=== PATIENT | male | born 1985 | race Caucasian/White ===

== ENCOUNTER 2021-10-10 19:15 | Emergency (ER) | payer MEDICAID, SELFPAY ==
[2021-10-10 19:33] VITALS: BP 126/88; PULSE 97; RESP 18; TEMP 36.4; O2SAT 98; BMI 36.5
--- NOTE | 2021-10-10 19:44 | CRLHL7_ITS ---
For Patients: As a result of the Cures Act, medical imaging exams and procedure reports are released immediately into your electronic medical record. You may view this report before your referring provider. If you have questions, please contact your health care provider. Indication: Injury to 4th digit. Technique: Right foot 3 views. Comparison: None. Findings: Bones: Alignment is normal. No fractures or bone lesions. Joint spaces: Unremarkable. Soft tissues: Unremarkable. Impression: No sign of acute injury. Dictated by Mayelin Pérez MD @ 10/10/2021 8:29:16 PM (Electronically Signed)
--- NOTE | 2021-10-10 20:26 | ED.GENADULT ---
HPI - General Adult General Time Seen by Provider: 20:25 Date Seen: 10/10/21 Chief complaint: Extremity Pain/Injury, Lower Stated complaint: R foot/toe injury Time Seen by Provider: 10/10/21 20:21 Source: patient History of Present Illness HPI narrative: 36-year-old male who comes in today after dropping the wheel of utility trailer on his right foot yesterday. Took ibuprofen but has continued to have pain in noted bruising today. No other injury. Pain is in the 3rd, 4th, and 5th toes. Has not use ice and is able to ambulate. Related Data Home Medications Medication Instructions Recorded Confirmed No Known Home Medications 10/10/21 10/10/21 Allergies Allergy/AdvReac Type Severity Reaction Status Date / Time benzoin Allergy Intermediate Rash Verified 10/10/21 19:35 Review of Systems Status of ROS: Reports: 10 or more systems reviewed and unremarkable except as noted in History and below [facility] PFS Medical History (Updated 10/10/21 @ 20:30 by Jose Angel Milton MD) Anxiety Surgical History (Updated 10/10/21 @ 20:17 by Carlos Resendez RN) No significant past surgical history Social History Smoking Status: Never smoker Do you use any of these nicotine containing products: None How often do you have a drink containing alcohol: never How often do you have six or more drinks on one occasion: Never AUDIT-C Alcohol total score: 0 Non-prescribed substance use: denies use Exam Narrative: Exam Narrative: General: well nourished , NAD Head: Atraumatic and normocephalic ENT: External ears and external nose are normal Eyes: Conjunctiva clear, pupils are equal reactive, external ocular motions are intact Neck: Full spontaneous range of motion of the neck Lungs: No respiratory distress Musculoskeletal: Tenderness and bruising of the 4th toe on the right foot, mild tenderness of the 5th toe and 3rd toe but less bruising Neurologic: No gross focal neurologic deficits Skin: No rashes Psych: Mood and affect are appropriate Const: Vital Signs, click to edit/add: Vital Signs - 24 hr 10/10/21 19:33 Temperature 97.6 F Pulse Rate [Right Pulse Oximeter] 97 Respiratory Rate 18 Blood Pressure [Ri ght Upper Arm] 126/88 Pulse Oximetry 98 Documenting provider has reviewed patient's vital signs: yes Course Vital Signs Vital signs: Initial Vital Signs Temperature 97.6 F 10/10/21 19:33 Temperature Source Temporal Artery Scan 10/10/21 19:33 Pulse Rate 97 10/10/21 19:33 Respiratory Rate 18 10/10/21 19:33 Blood Pressure 126/88 10/10/21 19:33 Blood Pressure Mean 100 10/10/21 19:33 Blood Pressure Position Sitting 10/10/21 19:33 Pulse Oximetry 98 10/10/21 19:33 Oxygen Delivery Method 10/10/21 19:33 Vital Signs Temperature 97.6 F 10/10/21 19:33 Pulse Rate 97 10/10/21 19:33 Respiratory Rate 18 10/10/21 19:33 Blood Pressure 126/88 10/10/21 19:33 Pulse Oximetry 98 10/10/21 19:33 Temperature 97.6 F 10/10/21 19:33 Pulse Rate 97 10/10/21 19:33 Respiratory Rate 18 10/10/21 19:33 Blood Pressure 126/88 10/10/21 19:33 Pulse Oximetry 98 10/10/21 19:33 Medical Decision Making MDM Narrative Medical decision making narrative: Patient seen and examined, prior records reviewed. Patient presents with pain of the 3rd, 4th, and 5th toes on the right after crush injury yesterday. On exam, bruising of the 4th toe, less prominent bruising but still some tenderness of the 3rd and 5th toes. X-ray personally reviewed and interpreted by me does not demonstrate any fractures, radiology interpretation is pending. Plan to discharge with symptom management. No pain with passive movement or numbness to suggest compartment syndrome. Discharge Plan Discharge Clinical Impression: Contusion of toe of right foot Patient Disposition: Home, Self-Care Condition: Stable Instructions: Crush Injury (ED) Additional Instructions: Elevate as able, ice 15-20 minutes at a time every 2-3 hours while awake today and tomorrow. Tylenol and ibuprofen as needed for pain. Activity Level: Activity as Tolerated Discharge Diet: Regular Prescriptions: No Action No Known Home Medications 0RF Follow Up/Referrals: Kenroy Bear MD [Primary Care Provider] - Stand Alone Forms: [employer] Info Instructions
[2021-10-10 20:50] VITALS: BP 119/78; PULSE 78
== END 2021-10-10 20:51 | disposition home or self-care (01) ==
LOC: ED 20:49
PROVIDERS: Emergency Provider Family Medicine; PCP Family Medicine
DX: S90.121A Contusion of right lesser toe(s) without damage to nail, initial encounter (principal); W23.0XXA Caught, crushed, jammed, or pinched between moving objects, initial encounter
CPT/HCPCS: 73630; 99283; 99284

== ENCOUNTER 2022-03-10 09:39 | Day surgery (SDC) | payer MEDICAID, SELFPAY ==
[2022-03-10] VITALS (13 sets, daily range): BP systolic 93–140; BP diastolic 66–101; PULSE 61–87; RESP 12–16; TEMP 36.1–36.9; O2SAT 92–100; BMI 37.9
--- NOTE | 2022-03-10 08:40 | CRLHL7_ITS ---
For Patients: As a result of the Century Cures Act, medical imaging exams and procedure reports are released immediately into your electronic medical record. You may view this report before your referring provider. If you have questions, please contact your health care provider. Indication: Left Talonavicular joint, Navicular Cuneiform joint Technique: Four fluoroscopic images of the left hindfoot submitted. Fluoroscopic time 139.1 seconds. IMPRESSION: Fluoroscopic guidance for posterior calcaneal osteotomy and multifocal joint fusion at the talonavicular joint and navicular cuneiform joint. Dictated by Kenroy Vaughan MD @ 03/11/2022 10:14:09 AM (Electronically Signed)
[2022-03-10] MEDS: LACTATED RINGERS 1000 ML 1,000 ML 100 ML IV (10:00)
[2022-03-10] MEDS: SODIUM CHLORIDE 0.9 % (FLUSH) 10 ML SYRINGE IVF (10:29)
--- NOTE | 2022-03-10 10:29 | SUR.PREOP ---
patient brought in home covid test. I was able to visualize the negative result. Test was taken on 03/09/22 in the evening.
[2022-03-10] MEDS: CEFAZOLIN 2 GM INJ IVP (11:45)
--- NOTE | 2022-03-10 12:04 | W.PM.NB ---
Nerve Block Nerve Block Date Seen: 03/10/22 Type of block requested by surgeon for post-operative analgesia: popliteal Side: left Time out performed: Yes Verification of patient name: Yes Verification of date of : Yes Site marking: site marked Name of person performing procedure: Juan Continuous monitoring Was continuous monitoring of O2 sat, B/P, classroom monitor, recorded every 15 minutes?: Yes Procedure Checklist: sterile prep, needles and gloves Ultrasound guided. Images saved: Yes Medications given in 5ml increments after negative aspiration: Ropivicaine %: 0.5 mL: 20 Needle gauge: 22 Patient tolerated procedure well: Yes Additional comments: Needle noted adjacent to nerve Block Charges Block Charge (with Pro Fee): Sciatic Nerve Use of Ultrasound Machine for Block: Yes- US Guidance/pain block
--- NOTE | 2022-03-10 12:04 | W.ANESCHARGE ---
Anesthesia Charges Start Date/Time Anesthesia Start Date: 03/10/22 Anesthesia Start Time: 11:23 Stop Date/Time Anesthesia Stop Date: 03/10/22 Summary Emergency: No
--- NOTE | 2022-03-10 12:08 | SUR.OPER ---
Patient voided before being brought back to OR.
--- NOTE | 2022-03-10 12:59 | W.ANESCHARGE ---
Anesthesia Charges Start Date/Time Anesthesia Start Date: 03/10/22 Anesthesia Start Time: 11:23 Stop Date/Time Anesthesia Stop Date: 03/10/22 Anesthesia Stop Time: 16:12 Summary Emergency: No
[2022-03-10] MEDS: BUPIVACAINE 0.5% 30 ML INJECTION (15:47)
--- NOTE | 2022-03-10 16:22 | P.GSOP_ITS ---
Operative Note Date of procedure: 03/10/22 Type of Procedure: 1. Gastroc lengthening left 2. Talonavicular joint fusion left 3. Navicular cuneiform joint fusion left 4. Medial slide Calcaneal osteotomy left foot Procedure Description: 1. Gastroc lengthening left 2. Talonavicular joint fusion left 3. Navicular cuneiform joint fusion left 4. Medial slide Calcaneal osteotomy left foot After discussing the risks and benefits of the procedure, the patient signed informed consent.? The operative site was marked and the patient was brought to the operating room and placed on the operating table in supine position.? Care was taken to pad the patient's pressure points.?? The patient was then intubated and given a popliteal block by anesthesia.?? The operative site was then prepped and draped in the usual sterile fashion.? A time-out was then performed. Left limb was exsanguinated and the thigh tourniquet and inflated to 300 mmHg. The left leg was placed in a frog-leg position with the foot dorsiflexed. Linear incisions made at the terminal end of the gastroc musculature medially. Incision was carried down through skin subcutaneous tissues. The paratenon was identified and incised. The gastroc aponeurosis was identified and from the underlying soleal fibers as well as the more superficial paratenon. The nerve was not within the paratenon and thus retracted throughout the case. A nasal speculum was placed to protect all structures. Utilizing a scalpel and Naranjo scissors a Krystian type gastroc recession was performed. Is excellent improvement in ankle dorsiflexion was obtained. Wound was thoroughly irrigated normal sterile saline. The paratenon was then repaired with 4-0 Vicryl. Subcutaneous tissues reapproximated 4-0 Vicryl and skin closed with 4-0 Prolene. Slightly angled linear incisions made over the lateral calcaneus. Incision was carried down through skin subcutaneous tissues. Periosteal incision was made and periosteum reflected anterior and posterior. A Crego elevator was used to release soft tissues plantar, dorsal and medial. Next an osteotomy guide was applied laterally and position and angle checked with C-arm. It was found to be optimal. A through and through osteotomy of the calcaneus was not performed lateral to medial taking great care to protect the medial neurovascular structures. Arthrex 10 mm calcaneal slide plate was applied to the posterior fragment and anchored with a 3.5 nonlocking and 3.5 mm locking screw. The posterior fragment was then transposed medially of the and the crossing cortical screw was placed creating with the compression across the osteotomy and awaiting the distal plate on the calcaneus. Lateral and axial views confirmed excellent correction. A 3.5 mm nonlocking and 3.5 mm locking screws were placed in the distal plate. Wound was thoroughly irrigated normal sterile saline. Subcutaneous tissues reapproximated 4-0 Vicryl and 4-0 Monocryl. The skin closed with 4-0 Prolene. Linear incision was made over the dorsal medial aspect of the talonavicular and navicular cuneiform joints. Incision was made between the posterior tibial tendon and the anterior tibial tendon. Incision was deepened down to the joint capsules and the joint capsule tissue was incised exposing both the talonavicular joint and the naviculocuneiform joint. Joint distractor was applied for to the talonavicular joint. Using combination of osteotome and cu rette the cartilage and subchondral bone were removed. The joint was further prepped by fenestrating with a 2.5 mm drill and fish scaling with an osteotome. The joint distractor was then applied to the navicular cuneiform joint. Cartilage subchondral bone removed with an osteotome and curette. Joint was further prepped with 2.5 mm drill and fish-scaled with an osteotome. 2 mL of demineralized bone matrix was placed into the talonavicular fusion site. The foot was then placed in a corrected position and a guide pin was placed in the navicular tuberosity and driven into the talar head and body. Position checked with C-arm found to be optimal. A 6.5 mm cannulated headless screw was inserted using standard technique excellent compression noted across the fusion site. 1 mL of demineralized bone matrix was placed into the navicular medial cuneiform joint. The navicular cuneiform joint was then held in reduced position and a guidepin was placed from the dorsal navicular into the plantar medial cuneiform. 4.5 mm cannulated headless screw inserted. Excellent compression across the fusion site was noted. Overall corrected position the foot assigned to be excellent. The dorsal to plantar 15 mm x 15 mm staple was then placed across the navicular medial cuneiform joint. Tourniquet was released at this point. The dorsalis pedis artery was identified and marked. A linear incision was then made over the middle cuneiform navicular joint medial to the neurovascular bundle. Blunt dissection was carried down to the middle cuneiform navicular joint. This area had been previously prepped. 1 mL of demineralized bone matrix was injected into the middle cuneiform navicular joint. A 15 mm x 15 mm staple was then placed. Excellent compression noted across the fusion site. A guide pin was then placed between the medial and middle cuneiform on the navicular and passed into the talar head. 4.5 mm cannulated headless screw was inserted in using standard technique. Wound was thoroughly irrigated with normal sterile saline. Final C-arm images confirmed excellent position and appropriate placement of hardware. Subcutaneous tissue was reapproximated 4-0 Vicryl and 4-0 Monocryl. Skin was reapproximated 4-0 Prolene. Sterile dressings were then applied. A well-padded plaster [id number] splint was applied. ? The patient was then woken and transported to the recovery area in stable condition. The patient tolerated the procedure well. Both written and verbal postop instructions given. He is given oxycodone for pain. He has crutches at home. He will remain nonweightbearing. He will follow up in 2 days. He will start aspirin therapy tomorrow. Findings: Complications: None apparent Implants: Arthrex 6.5 mm headless screw x1, Arthrex 4.5 mm headless screw x 2, Arthrex 15 mm by 15 mm staple x2, Arthrex calcaneal plate x1 with 3.5 mm nonlocking screw x3 and 3.5 mm locking screws x2 Anesthesia: GETA, regional and local Surgeon: Arjun Isaacs DPM Estimated blood loss (mL): 40 Condition: stable Disposition: same day
--- NOTE | 2022-03-10 16:24 | W.ANESCHARGE ---
Anesthesia Charges Start Date/Time Anesthesia Start Date: 03/10/22 Anesthesia Start Time: 11:23 Stop Date/Time Anesthesia Stop Date: 03/10/22 Anesthesia Stop Time: 16:12 Summary Emergency: No
--- NOTE | 2022-03-10 16:53 | SUR.PHASEI ---
500cc lr upon pacu arrival. infused 100cc lr infused in pacu phase 1
== END 2022-03-10 18:09 | disposition home or self-care (01) ==
PROVIDERS: Visit Provider Podiatrist
PROC: (CPT 28740; principal; 2022-03-10 11:30)
PROC: (CPT 28300; 2022-03-10 11:30)
DX: M21.42 Flat foot [pes planus] (acquired), left foot (principal); M21.41 Flat foot [pes planus] (acquired), right foot; M25.572 Pain in left ankle and joints of left foot
CPT/HCPCS: 27687; 28300; 28735; 01480; 64445; 73620; 76000; 76942; A4580; C1713; J0690; J1100; J1170; J2250; J2405; J2795; J3010; J3490; J7120

== ENCOUNTER 2022-07-28 13:30 | Outpatient (RCR) | payer MEDICAID, SELFPAY | END 2022-10-20 14:49 | disposition home or self-care (01) | PROVIDERS: Visit Provider Podiatrist | DX: M76.822 Posterior tibial tendinitis, left leg (principal); Z51.89 Encounter for other specified aftercare | CPT/HCPCS: 97110; 97140; 97161 ==

== ENCOUNTER 2022-11-05 20:58 | Emergency (ER) | payer MEDICAID, SELFPAY ==
[2022-11-05 21:10] VITALS: BP 125/74; PULSE 98; RESP 18; TEMP 36.7; O2SAT 99; BMI 39.5
--- NOTE | 2022-11-05 21:26 | ED.SKABFB ---
HPI - Skin/Abscess/Foreign Bdy General Time Seen by Provider: 21:26 Date Seen: 11/05/22 Chief complaint: Skin/Abscess/Foreign Body Stated complaint: bee sting yesterday, redness at site Time Seen by Provider: 11/05/22 21:13 Source: patient and RN notes reviewed Mode of arrival: ambulatory Limitations: no limitations History of Present Illness HPI narrative: Patient is a 37-year-old male that was stung in his left lower leg yesterday by a a bumble bee. He is not sure if he was stung multiple times. He has not taken anything, has not had any fevers. The leg has continued to swell, has increasing pain and is itchy. No history of reactions to insect bites Or Hymenoptera. He is not exactly sure where he was stung on the leg but there is red areas now, feels more warm. He is wondering about infection. Never any oral pharyngeal or respiratory symptoms. No other rash anywhere else just localized on the leg. 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 - Regular astigmatism, unspecified eye (ICD-10) Hypermetropia ?H52.00 - Hypermetropia, unspecified eye (ICD-10) Reflux esophagitis ?K21.00 - Gastro-esophageal reflux disease with esophagitis, without bleeding (ICD-10) Anxiety ?F41.9 - Anxiety disorder, unspecified (ICD-10) Surgical History Hx of esophagogastroduodenoscopy ?Z98.890 - Other specified postprocedural states (ICD-10) Hx of tonsillectomy ?Z90.89 - Acquired absence of other organs (ICD-10) No significant past surgical history Social History Smoking Status: Never smoker Do you use any of these nicotine containing products: None How often do you have a drink containing alcohol: never How often do you have six or more drinks on one occasion: Never AUDIT-C Alcohol total score: 0 Non-prescribed substance use: denies use Exam Const: Vital Signs, click to edit/add: Vital Signs - 24 hr 11/05/22 21:10 Temperature 98.1 F Pulse Rate [Right Pulse Oximeter] 98 Respiratory Rate 18 Blood Pressure [Ri ght Upper Arm] 125/74 Pulse Oximetry 99 Oxygen Delivery Me thod Room Air Documenting provider has reviewed patient's vital signs: yes Other: David is a 37-year-old male ambulatory into the ED of his own accord. Lungs are clear, able speak in complete sentences face atraumatic, no oral pharyngeal swelling. CV regular rate and rhythm no murmur. On his left lower extremity he definitely has edema anteriorly along the left lower leg. There is no calf tenderness, negative Homans. He has some petechial skin hemorrhages within the area of swelling, there is a centralized area of warmth, see no active solitary site where there is a bug bite. Has some generalized swelling in erythema. This certainly could be a localized inflammatory reaction and or cellulitis setting in. No fluctuance, no open wounds noted. Course Course Hospital Course: We will give a dose of Keflex here tonight as well as 10 mg oral Zyrtec. He has not taken any anti allergies /any anti-inflammatory type medicines. Will cover both for bug bite reaction as well as possible secondary cellulitis. Have stressed ice and elevation to help minimize symptoms over the next few days. Vital Signs Vital signs: Initial Vital Signs Temperature 98.1 F 11/05/22 21:10 Temperature Source Temporal Artery Scan 11/05/22 21:10 Pulse Rate 98 11/05/22 21:10 Respiratory Rate 18 11/05/22 21:10 Blood Pressure 125/74 11/05/22 21:10 Blood Pressure Mean 91 11/05/22 21:10 Blood Pressure Position Sitting 11/05/22 21:10 Pulse Oximetry 99 11/05/22 21:10 Oxygen Delivery Method Room Air 11/05/22 21:10 Vital Signs Temperature 98.1 F 11/05/22 21:10 Pulse Rate 98 11/05/22 21:10 Respiratory Rate 18 11/05/22 21:10 Blood Pressure 125/74 11/05/22 21:10 Pulse Oximetry 99 11/05/22 21:10 Oxygen Delivery Method Room Air 11/05/22 21:10 Temperature 98.1 F 11/05/22 21:10 Pulse Rate 98 11/05/22 21:10 Respiratory Rate 18 11/05/22 21:10 Blood Pressure 125/74 11/05/22 21:10 Pulse Oximetry 99 11/05/22 21:10 Oxygen Delivery Method Room Air 11/05/22 21:10 Discharge Plan Discharge Clinical Impression: Hymenoptera reaction Patient Disposition: Home, Self-Care Condition: Stable Instructions: Cellulitis (ED), Insect Bite or Sting (ED) Additional Instructions: Your leg certainly has swelling and inflammatory change which could have a component of infection of the skin called cellulitis from the bug bite. This is all possibly inflammatory reaction. We will cover both bases with Zyrtec in antibiotics. I would like you to pick some [id number] Zyrtec up and take 10 mg daily for the next 3-5 days until symptoms are improving. We will have you on Keflex to cover for infection, next dose is due tomorrow morning. Do recommend elevating and icing this leg as much as you are able to the next few days. If the swelling, redness itching and pain are not improving over the next couple days or start to worsen at any point, do recommend seeking re-evaluation. Activity Level: Activity as Tolerated Prescriptions: New cephalexin 500 mg tablet 500 mg PO TID Qty: 15 0RF No Action omeprazole 40 mg capsule,delayed release(DR/EC) 40 mg PO DAILY Follow Up/Referrals: Provider,Not a Local [Primary Care Provider] - Stand Alone [facility]: [facility] Info Instructions
[2022-11-05 21:40] VITALS: BP 128/84; PULSE 84; RESP 18; TEMP 36.7; O2SAT 99
[2022-11-05] MEDS: CETIRIZINE HCL 10 MG TABLET PO (21:43)
[2022-11-05] MEDS: cephALEXin 500 MG CAPSULE PO (21:43)
[2022-11-05 21:48] VITALS: BP 128/84; PULSE 84; RESP 18; TEMP 36.7
== END 2022-11-05 21:49 | disposition home or self-care (01) ==
LOC: ED 21:43
PROVIDERS: Emergency Provider Family Medicine
DX: B71.0 Hymenolepiasis (principal)
CPT/HCPCS: 99283; A9270

== ENCOUNTER 2023-06-06 16:54 | Emergency (ER) | payer MEDICAID, SELFPAY ==
[2023-06-06 17:03] VITALS: BP 134/85; PULSE 75; RESP 18; TEMP 36.1; O2SAT 97; BMI 36.2
[2023-06-06 18:01] LABS: PCR FLU A POSITIVE PCR FLU A (Negative); PCR FLU B Negative PCR FLU B (Negative); PCR RSV Negative PCR RSV (Negative); SARS PCR* Negative SARS-CoV-2 (Negative)
--- NOTE | 2023-06-06 18:15 | ED.GENADULT ---
HPI - General Adult General Chief complaint: Fever Stated complaint: Possible Flu A-son diagnosed Thursday Time Seen by Provider: 06/06/23 17:04 Source: patient Mode of arrival: ambulatory Limitations: no limitations History of Present Illness HPI narrative: 38-year-old male presenting today with concerns of fever. Patient states that he got sick approximately 5 days ago. Has not had a fever in the last 24 hours however. He feels achy and tired. Decreased appetite. No chest pain or shortness of breath. No cough. His children all have influenza a. 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 - Regular astigmatism, unspecified eye (ICD-10) Hypermetropia ?H52.00 - Hypermetropia, unspecified eye (ICD-10) Reflux esophagitis ?K21.00 - Gastro-esophageal reflux disease with esophagitis, without bleeding (ICD-10) Anxiety ?F41.9 - Anxiety disorder, unspecified (ICD-10) Surgical History Hx of esophagogastroduodenoscopy ?Z98.890 - Other specified postprocedural states (ICD-10) Hx of tonsillectomy ?Z90.89 - Acquired absence of other organs (ICD-10) No significant past surgical history Social History Smoking Status: Never smoker Do you use any of these nicotine containing products: None How often do you have a drink containing alcohol: never How often do you have six or more drinks on one occasion: Never AUDIT-C Alcohol total score: 0 Non-prescribed substance use: denies use Exam Narrative: Exam Narrative: Overweight, well-developed patient in no acute distress. Alert and oriented. Answers questions appropriately. Mood and affect are appropriate. Thoughts are goal oriented and rational. No tangential or magical thinking noted. Patient speaks in full sentences without needing to catch his breath. HEENT: Normocephalic atraumatic. Pupils are equally round reactive to light. Extraocular muscles are intact. Conjunctivae are moist without any icterus noted. Moist mucous membranes. Cardiovascular: Heart is regular rate and rhythm S1 and S2 are present without any murmurs. Lungs: Clear to auscultation bilaterally no wheezes rhonchi or rales are appreciated. Patient takes deep breaths without any discomfort. Abdomen: Soft and nontender nondistended with normal bowel sounds. Skin: Well perfused without any obvious rashes. Const: Vital Signs, click to edit/add: Vital Signs - 24 hr 06/06/23 17:03 Temperature 96.9 F L Pulse Rate [Right Pulse Oximeter] 75 Respiratory Rate 18 Blood Pressure [Ri ght Upper Arm] 134/85 Pulse Oximetry 97 Oxygen Delivery Me thod Room Air Course Course ED Course: Triple swab positive for influenza A. Vital Signs Vital signs: Initial Vital Signs Temperature 96.9 F L 06/06/23 17:03 Temperature Source Temporal Artery Scan 06/06/23 17:03 Pulse Rate 75 06/06/23 17:03 Respiratory Rate 18 06/06/23 17:03 Blood Pressure 134/85 06/06/23 17:03 Blood Pressure Mean 101 06/06/23 17:03 Blood Pressure Position Sitting 06/06/23 17:03 Pulse Oximetry 97 06/06/23 17:03 Oxygen Delivery Method Room Air 06/06/23 17:03 Vital Signs Temperature 96.9 F L 06/06/23 17:03 Pulse Rate 75 06/06/23 17:03 Respiratory Rate 18 06/06/23 17:03 Blood Pressure 134/85 06/06/23 17:03 Pulse Oximetry 97 06/06/23 17:03 Oxygen Delivery Method Room Air 06/06/23 17:03 Temperature 96.9 F L 06/06/23 17:03 Pulse Rate 75 06/06/23 17:03 Respiratory Rate 18 06/06/23 17:03 Blood Pressure 134/85 06/06/23 17:03 Pulse Oximetry 97 06/06/23 17:03 Oxygen Delivery Method Room Air 06/06/23 17:03 Medical Decision Making MDM Narrative Medical decision making narrative: 38-year-old male with influenza a. He is outside the therapeutic window for Tamiflu. He is doing better today than he was yesterday. At this point recommend symptomatic treatment. Lab Data Lab results reviewed: Yes I reviewed the patient's lab results Labs: Lab Results 06/06/23 Range/Units 17:09 SARS-CoV-2 (PCR) Negative SARS-CoV-2 (Negative) Influenza Type A (PCR) POSITIVE PCR FLU A A (Negative) Influenza Type B (PCR) Negative PCR FLU B (Negative) RSV (PCR) Negative PCR RSV (Negative) Discharge Plan Discharge Clinical Impression: Influenza A Patient Disposition: Home, Self-Care Condition: Stable Additional Instructions: Increase fluid intake, okay to take ibuprofen or Tylenol as needed for discomfort or fevers. Prescriptions: No Action omeprazole 20 mg capsule,delayed release(DR/EC) 20 mg PO DAILY Follow Up/Referrals: Provider,Not a Local [Primary Care Provider] - Stand Alone Forms: Duroline Info Instructions
== END 2023-06-06 18:45 | disposition home or self-care (01) ==
PROVIDERS: Emergency Provider Family Medicine
DX: J10.1 Influenza due to other identified influenza virus with other respiratory manifestations (principal)
CPT/HCPCS: 87631; 99282; 99283

== ENCOUNTER 2023-08-26 10:09 | Emergency (ER) | payer MEDICAID, SELFPAY ==
[2023-08-26 10:13] VITALS: BP 150/94; PULSE 51; RESP 18; TEMP 36.3; O2SAT 97; BMI 36.2
--- NOTE | 2023-08-26 10:19 | ED_ITS ---
HPI - General Adult General Date Seen: 08/26/23 Chief complaint: Unspecified Complaint, Adult Stated complaint: Rectal pain Time Seen by Provider: 08/26/23 10:18 History of Present Illness HPI narrative: 38-year-old gentleman with a past medical history of previous hemorrhoid (8-9 years ago. Treated in the clinic. Probably with anti-inflammatory cream.), influenza in June, presenting to the ER today with rectal pain. He woke yesterday morning with rectal pain. He is noting a small lump in the rectum and feels similar to when he had his hemorrhoid supple years ago. 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 He was experiencing a lot of pain in his rectum yesterday while sitting all day is able to pass bowel movements. There not bloody. He is not constipated. No rectal pain when passing a Plasencia but he does have some discomfort right at the opening when the stool passes and when he wipes. No fever chills. No abdominal pain. No nausea or vomiting. He has no previous history of inflammatory bowel disease or Crohn's. No history of immunosuppression. No diabetes. He does have GERD and takes omeprazole. 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 - Regular astigmatism, unspecified eye (ICD-10) Hypermetropia ?H52.00 - Hypermetropia, unspecified eye (ICD-10) Reflux esophagitis ?K21.00 - Gastro-esophageal reflux disease with esophagitis, without bleeding (ICD-10) Anxiety ?F41.9 - Anxiety disorder, unspecified (ICD-10) Surgical History Hx of esophagogastroduodenoscopy ?Z98.890 - Other specified postprocedural states (ICD-10) Hx of tonsillectomy ?Z90.89 - Acquired absence of other organs (ICD-10) No significant past surgical history Social History Smoking Status: Never smoker Do you use any of these nicotine containing products: None How often do you have a drink containing alcohol: never How often do you have six or more drinks on one occasion: Never AUDIT-C Alcohol total score: 0 Non-prescribed substance use: denies use Exam Narrative: Exam Narrative: Constitutional: Appears well-developed and well-nourished. Active. Polite. Conversant. Non-toxic appearing. HENT: Head: Atraumatic. No signs of injury. Nose: No nasal discharge. Mouth/Throat: Mucous membranes are moist. Pharynx is normal.. Airway patent. Eyes: Conjunctivae normal and EOM are normal. Pupils are equal, round, and reac tive to light. Right eye exhibits no discharge. Left eye exhibits no discharge. No icterus. Neck: Normal range of motion. Neck supple. No adenopathy. No stridor. Cardiovascular: Normal rate and regular rhythm. Brisk capillary refill Pulmonary/Chest: Effort normal. No stridor. No respiratory distress. No retractions. Abdominal: Soft. Bowel sounds are normal. No distension. No mass. There is no tenderness. There is no rebound and no guarding. Rectal: Gluteal cleft and perineum are normal. Rectal tone normal. There is a small 5-10 mm mildly inflamed soft tissue lump right at the rectal opening, in the anterior portion just left of midline. Think this consistent with a small external hemorrhoid. No bleeding. Could also potentially be a thrombosed, prolapsed internal hemorrhoid. No surrounding erythema to suggest perirectal abscess. Musculoskeletal: Normal range of motion. No edema. No tenderness. No deformity. Neurological: Alert. Normal strength. No cranial nerve deficit or sensory deficit. Coordination normal. GCS eye subscore is 4. GCS verbal subscore is 5. GCS motor subscore is 6. Skin: Skin is warm. No rash noted. Const: Vital Signs, click to edit/add: Vital Signs - 24 hr 08/26/23 10:13 Temperature 97.4 F L Pulse Rate [Pulse Oximeter] 51 L Respiratory Rate 18 Blood Pressure [Ri ght Upper Arm] 150/94 H Pulse Oximetry 97 Oxygen Delivery Me thod Room Air Course Vital Signs Vital signs: Initial Vital Signs Temperature 97.4 F L 08/26/23 10:13 Temperature Source Temporal Artery Scan 08/26/23 10:13 Pulse Rate 51 L 08/26/23 10:13 Respiratory Rate 18 08/26/23 10:13 Blood Pressure 150/94 H 08/26/23 10:13 Blood Pressure Mean 112 H 08/26/23 10:13 Blood Pressure Position Sitting 08/26/23 10:13 Pulse Oximetry 97 08/26/23 10:13 Oxygen Delivery Method Room Air 08/26/23 10:13 Vital Signs Temperature 97.4 F L 08/26/23 10:13 Pulse Rate 51 L 08/26/23 10:13 Respiratory Rate 18 08/26/23 10:13 Blood Pressure 150/94 H 08/26/23 10:13 Pulse Oximetry 97 08/26/23 10:13 Oxygen Delivery Method Room Air 08/26/23 10:13 Temperature 97.4 F L 08/26/23 10:13 Pulse Rate 51 L 08/26/23 10:13 Respiratory Rate 18 08/26/23 10:13 Blood Pressure 150/94 H 08/26/23 10:13 Pulse Oximetry 97 08/26/23 10:13 Oxygen Delivery Method Room Air 08/26/23 10:13 Medications Administered Medications: Discontinued Medications Generic Name Dose Route Start Last Admin Trade Name Freq PRN Reason Stop Dose Admin Lidocaine HCl 6 ml 08/26/23 10:49 08/26/23 11:05 Lidocaine Hcl 2 % Jelly (Top) Sterile TOPICAL 08/26/23 10:50 6 ml ONCE ONE Administration Medical Decision Making MDM Narrative Medical decision making narrative: Very pleasant generally healthy male (only on Prilosec for GERD) presenting to the ER today with a painful lump at his rectum. Exam most consistent with a very small thrombosed external hemorrhoid. Differential would also include possibly an internal hemorrhoid that is prolapsed during my exam, but that is less likely. Also consider possible para rectal abscess but that is much less likely. No other constitutional symptoms or fever and no surrounding erythema to suggest active infection. Discussed options with the patient. Hemorrhoid is fairly for close to the anal opening and would be difficult to do an incision and drainage here in the ER. Will start him on topical lidocaine for comfort and topical steroids for anti- inflammatory effect. If the area becomes larger, more painful, starts bleeding, or other symptoms develop he will return to the ER right away. If it is worsening would consider re-evaluation by exam or possibly even CT to check for perirectal abscess. Otherwise outpatient referral for surgery to consider excision. Patient agreeable to plan of care. He does not need a note for work. Return precautions reviewed. Questions answered. Topical lidocaine applied here in the ER. Prescription for hydrocortisone to his pharmacy at [facility]. Discharge Plan Discharge Clinical Impression: Hemorrhoids, external, thrombosed Patient Disposition: Home, Self-Care Condition: Stable Instructions: Hemorrhoids (DC) Additional Instructions: As we discussed, use the topical anesthetic cream (lidocaine) every 4 hours as needed for discomfort. Use the steroid cream twice daily to help reduce inflammation until the hemorrhoid is healed. If you have any worsening pain, if the lump is getting bigger, or if he develops fever or chills or abdominal pain, please come back to the ER right away to be rechecked. You should consider surgical consultation to have your hemorrhoid excised. To make an appointment with the surgeon, you can call [phone] Prescriptions: New hydrocortisone 1 % cream 1 applic topical BID Qty: 28.4 0RF No Action omeprazole 20 mg capsule,delayed release(DR/EC) 20 mg PO DAILY Follow Up/Referrals: Provider,Not a Local [Primary Care Provider] - Stand Alone Forms: [employer] Info Instructions
[2023-08-26] MEDS: lidocaine HCL 2 % JELLY (TOP) STERILE 6 ML TOPICAL (11:05)
== END 2023-08-26 11:16 | disposition home or self-care (01) ==
LOC: ED 10:55
PROVIDERS: Emergency Provider Emergency Medicine
DX: K64.5 Perianal venous thrombosis (principal)
CPT/HCPCS: 99282; 99283

== ENCOUNTER 2024-10-25 19:02 | Emergency (ER) | payer OTHER, SELFPAY ==
--- OUTSIDE RECORDS SUMMARY | 2024-10-25 19:04 | XMS_ITS | Clinical Summary ---
Author Organization [email or web address] Address [address] [place] [id number] Care Team Providers Care Screw Driver Operator Name Role Phone Nataliia Pinzon MD Primary Care Provider [phone] Allergies Active Allergy Reactions Criticality Noted Date Comments Aloe Rash 05/23/2018 Balsam Jaren Rash 05/23/2018 Benzoin Rash 09/25/2009 Medications durable medical equipment (DME)Indication s:Pes planus of both feet,Tendonitis , Achilles, left [id number] Plantar Fasciitis Night Splint, Large 1 Each 1 Active omeprazole (PRILOSEC) 40 mg Delayed-Release capsuleIndicati ons:Gastroesoph ageal reflux disease with esophagitis without hemorrhage TAKE 1 CAPSULE BY MOUTH ONCE DAILY 30-60 MINUTES BEFORE A MEAL. 90 Capsule 3 2 Active acetaminophen (TYLENOL EXTRA STRGTH) 500 mg tabletIndicatio ns:Follow-up examination after orthopedic surgery Take 2 Tablets (1,000 mg) by mouth every 6 hours if needed for Pain. Max acetaminophen dose: 4000mg in 24 hrs. 90 Tablet 3 Active ibuprofen (ADVIL; MOTRIN) 600 mg tabletIndicatio ns:Follow-up examination after orthopedic surgery Take 1 Tablet (600 mg) by mouth every 6 hours if needed for Pain. Maximum of 3200 mg in 24 hours. 60 Tablet 2 3 Active triamcinolone (ARISTOCORT; KENALOG) 0.1 % creamIndication s:Skin infection Apply topically to affected area(s) three times daily. 28.4 g 3 Active clobetasol 0.05% (TEMOVATE 0.05% OINTMENT) 0.05 % ointmentIndicat ions:Skin lesion Apply topically to affected area(s) two times daily. 30 g 3 Active durable medical equipment (DME)Indication s:Plantar fasciitis [phone] Plantar Fasciitis Night Splint 5 Active Active Problems Problem Noted Date Diagnosed Date Reflux esophagitis 09/05/2013 Overview (09/05/2013): EGD 08/2013 reflux, small stricture, could not dilate due to patient's movement SIRI 09/12 AHI-5.2, having tonsils removed 009 Hypermetropia 08/31/2007 Regular astigmatism 08/31/2007 Encounters Date Type Department Care Team Description 08/16/2024 Telephone [facility] [address] [place] [address] Arjun Isaacs DPM DME Supply ([employer]) 08/03/2024 2:45 PM CDT Office Visit [facility] [address] [place] [address] Arjun Isaacs DPM Follow Up (Left foot pain) 08/03/2024 Travel from Last 3 Months Immunizations Immunization Administration Dates Next Due AMB Influenza, IIV3 (Age >=3 years)(Flu Clinic Only) 02/24/2008 DTP 04/12/1986, 6,1984,1984 Influenza A (H1N1), Inactivated 02/22/2009 Influenza A (H1N1), Live Intranasal 02/22/2009 Influenza, IIV3 (Age 6-35 mos) 04/18/2009 Influenza, IIV3 (Age >=3 years) 04/21/19 14,01/20/2012,03/12/2011,2009,04/18/2009 Influenza, IIV4 02/26/2022, 0,03/28/2019,2017,05/04/2017,02/06/2016,02/09/2015,1 05/17/2013 MMR 08/01/1985 Oral Polio Vaccine 04/12/1986, 6,1984,1984 Tdap 01/26/2014,11/09/2008 Family History Medical History Relation Name Comments No Known Problems Brother 1 No Known Problems Brother 2 No Known Problems Brother 3 Hypertension Father Stroke Father TIA Cancer-colon Maternal Aunt No Known Problems Maternal Grandfather No Known Problems Maternal Grandmother Good Health Mother No Known Problems Paternal Grandfather No Known Problems Paternal Grandmother Relation Name Status Comments Brother 1 Alive Brother 2 Alive Brother 3 Alive Father Alive Maternal Aunt Maternal Grandfather Maternal Grandmother Alive Mother Alive Paternal Grandfather Paternal Grandmother Social History Tobacco Use Types Packs/Day Years Used Date Smoking Tobacco: Never Smokeless Tobacco: Never Tobacco Cessation:Counseling Given: Yes Alcohol Use Standard Drinks/Week Comments Not Currently 0 (1 standard drink = 0.6 oz pur e alcohol) 1x per month PHQ-2 Answer Date Recorded PHQ-2 TOTAL SCORE 0 11/27/2021 Social Connections Answer Date Recorded Frequency of Communication with Friends and Fami ly 0 11/27/2021 Financial Resource Strain Answer Date R ecorded Difficulty of Paying Living Expenses 3 11/27/2021 Difficulty of Paying Living Expenses Not on file 11/27/2021 Food Insecurity Answer Date Recorded Worried About Running Out of Food in the Last Ye ar 1 11/27/2021 Transportation Needs Answer Date Record ed Lack of Transportation (Medical) 1 11/27/2021 Housing Stability Answer Date Recorded Unable to Pay for Housing in the Last Year 1 11/27/2021 Sex and Gender Information Value Date Recorded Sex Assigned at Not on file Legal Sex 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 Gender Identity Not on file Sexual Orientation Not on file 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 Not on file Not on file Not on file Obstetrics History Last Filed Vital Signs Vital Sign Reading Time Taken Comments Blood Pressure 120/75 08/03/2024 2:22 PM CDT Pulse 79 08/03/2024 2:22 PM CDT Temperature 36.8 C (98.3 F) 10/13/2022 2:21 PM CDT Respiratory Rate 12 03/28/2019 9:45 AM TROLLEY OPERATOR Oxygen Saturation 97% 08/03/2024 2:22 PM CDT Inhaled Oxygen Concentration - - Weight 116.1 kg (256 lb) 04/13/2024 3:29 PM TROLLEY OPERATOR Height 176.2 cm (5' 9.37) 02/26/2022 10:08 AM C Body Mass Index 37.4 02/26/2022 10:08 AM TROLLEY OPERATOR Plan of Treatment Health Maintenance Due Date Last Done Comments HIV for age 15-65 1999 Hepatitis C screening for age 18-79 2002 Hepatitis B series for 19+ (1 of 3 - 19+ 3-dose series) 2003 Depression screening for age 12+ 11/27/2022 11/27/2021, 04/18/2019, 02/09/2018, Additional history exists Lipids for age 35-44 02/09/2023 02/09/2018, 05/05/19 15 BMI (ht and wt on same day) for age 18+ 02/26/2023 02/26/2022, 11/27/2021, 01/08/2021, Additional history exists COVID-19 vaccine series ( season) 2023 09/14/2020, 08/17/2020 Tetanus booster 01/27/2024 01/26/2014, 11/09/2008 Influenza Vaccine (#1) 2024 , 03/02/2020, 03/28/2019, Additional history exists Pneumococcal series for age 6-49 Aged Out No longer eligible based on patient's age to complete this topic Procedures Procedure Name Priority Date/Time Associated Diagnosis Comments LIPID PANEL W REFLEX MEASURED LDL Routine 02/09/2018 8:54 AM TROLLEY OPERATOR Screening cholesterol level from Last 3 Months or Most Recently Relevant to Health Maintenance Results * (ABNORMAL) LIPID PANEL W REFLEX MEASURED LDL (02/09/2018 8:54 AM TROLLEY OPERATOR) CHOLESTEROL,TOTAL 188 100 - 199 mg/dL 02/09/2018 5:11 PM TROLLEY OPERATOR [facility] TRIGLYCERIDES 144 <150 mg/dL 02/09/2018 5:11 PM TROLLEY OPERATOR [facility] HDL CHOLESTEROL 41 >40 mg/dL 8 5:11 PM TROLLEY OPERATOR [facility] NON-HDL CHOLESTEROL 147(H) <145 mg/dl 02/09/2018 5:11 PM TROLLEY OPERATOR [facility] CHOL/HDL RATIO 4.59(H) <4.50 02/09/2018 5:11 PM TROLLEY OPERATOR [facility] LDL CHOLESTEROL 118 <=130 mg/dL 02/09/2018 5:11 PM TROLLEY OPERATOR [facility] PROVIDER ORDERED STATUS RANDOM 02/09/2018 5:11 PM TROLLEY OPERATOR [facility] Blood BLOOD SPECIMEN / Unknown Venipuncture / Unknown 02/09/2018 8:54 AM TROLLEY OPERATOR 02/09/2018 8:54 AM TROLLEY OPERATOR Charley LE CHEMISTRY Final Result [facility] [address] [place] [address], from Last 3 Months or Most Recently Relevant to Health Maintenance Insurance [employer] Care Teams Screw Driver Operator Relationship Specialty Start Date End Date Nataliia Pinzon MD [address] [place] [address], [place] [address] PCP - General Family Practice 11/27/21
[2024-10-25 19:07] VITALS: BP 151/90; PULSE 82; RESP 18; TEMP 36.2; O2SAT 96; BMI 35.4
--- NOTE | 2024-10-25 19:13 | ED_ITS ---
HPI - Wound/Laceration General Time Seen by Provider: 19:14 Date Seen: 10/25/24 Chief Complaint: Laceration/Wound Stated Complaint: Left foot laceration Time Seen by Provider: 10/25/24 19:13 Source: patient and RN notes reviewed Mode of arrival: ambulatory Limitations: no limitations History of Present Illness HPI narrative: This 39-year-old male his coming in with a left ankle wound. He was helping a friend move and dropped a board on this ankle. He noted significant bleeding from the wound, did come in for that. Wound is wrapped, it is controlled by the time he comes here. He is unsure of his last tetanus, we do look it up and was last in 2013. He agrees to have it updated. He feels like he is having some pain underlying in the ankle. This foot had some reconstructive surgery couple leave years ago and will ache after time when he is on it. His foot is not bothering him now. The ankle does feel little sore. Nursing staff has already cleaned this wound off. Related Data Home Medications ?Medication ?Instructions ?Recorded ?Confirmed omeprazole 20 mg capsule,delayed 20 mg PO DAILY 08/26/23 release Previous Rx's ?Medication ?Instructions ?Recorded hydrocortisone 1 % topical cream 1 applic topical BID #28.4 grams 08/26/23 Allergies Allergy/AdvReac Type Severity Reaction Status Date / Time aloe Allergy Intermediate Rash Verified 08/26/23 10:17 balsam sam Allergy Intermediate Rash Verified 08/26/23 10:17 benzoin Allergy Intermediate Rash Verified 08/26/23 10:17 Review of Systems Narrative: As per HPI. 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 - Regular astigmatism, unspecified eye (ICD-10) Hypermetropia ?H52.00 - Hypermetropia, unspecified eye (ICD-10) Reflux esophagitis ?K21.00 - Gastro-esophageal reflux disease with esophagitis, without bleeding (ICD-10) Anxiety ?F41.9 - Anxiety disorder, unspecified (ICD-10) Surgical History Hx of esophagogastroduodenoscopy ?Z98.890 - Other specified postprocedural states (ICD-10) Hx of tonsillectomy ?Z90.89 - Acquired absence of other organs (ICD-10) No significant past surgical history Social History Smoking Status: Never smoker Do you use any of these nicotine containing products: None How often do you have a drink containing alcohol: never How often do you have six or more drinks on one occasion: Never AUDIT-C Alcohol total score: 0 Non-prescribed substance use: denies use Exam Const: Vital Signs, click to edit/add: Vital Signs - 24 hr 10/25/24 19:07 Temperature 97.2 F L Pulse Rate [Pulse Oximeter] 82 Respiratory Rate 18 Blood Pressure [Le ft Upper Arm] 151/90 H Pulse Oximetry 96 Oxygen Delivery Me thod Room Air This patient is ambulatory into the ED of his own accord. He is alert, interactive, no apparent stress. He has a superficial abrasion about 2 cm long and 2 cm wide at its widest part but tapers down on either end. It is superficial, no active bleeding. He does complain of tenderness when I palpate over the lateral malleolus, wound is more situated laterally over the ankle. Ankle mortise seems to be intact. Distal pulses are good in the foot, neurovascular is intact in the foot. This wound is not deep into the tissues. Documenting provider has reviewed patient's vital signs: yes Course Course ED Course: Will make sure there is no underlying fracture, will get left ankle x-rays. His tetanus will be updated with a Tdap. Nursing staff has already cleaned the wound, will put bacitracin and a bandage on it. Reevaluation(s) Time of Reevaluation #1: 20:08 Reevaluation #1: Reviewed with patient that there is no fracture on his x-ray. He has already had his tetanus updated. Did discuss expectations or potential side effects after the tetanus shot. Vital Signs Vital signs: Initial Vital Signs Temperature 97.2 F L 10/25/24 19:07 Temperature Source Temporal Artery Scan 10/25/24 19:07 Pulse Rate 82 10/25/24 19:07 Pulse Rhythm Regular 10/25/24 19:07 Respiratory Rate 18 10/25/24 19:07 Blood Pressure 151/90 H 10/25/24 19:07 Blood Pressure Mean 110 H 10/25/24 19:07 Blood Pressure Position Sitting 10/25/24 19:07 Pulse Oximetry 96 10/25/24 19:07 Oxygen Delivery Method Room Air 10/25/24 19:07 Vital Signs Temperature 97.2 F L 10/25/24 19:07 Pulse Rate 82 10/25/24 19:07 Respiratory Rate 18 10/25/24 19:07 Blood Pressure 151/90 H 10/25/24 19:07 Pulse Oximetry 96 10/25/24 19:07 Oxygen Delivery Method Room Air 10/25/24 19:07 Temperature 97.2 F L 10/25/24 19:07 Pulse Rate 82 10/25/24 19:07 Respiratory Rate 18 10/25/24 19:07 Blood Pressure 151/90 H 10/25/24 19:07 Pulse Oximetry 96 10/25/24 19:07 Oxygen Delivery Method Room Air 10/25/24 19:07 Medications Administered Medications: Discontinued Medications Generic Name Dose Route Start Last Admin Trade Name Freq PRN Reason Stop Dose Admin Bacitracin Zinc 1 each 10/25/24 19:18 10/25/24 19:24 Bacitracin 0.9 Gm Packet TOPICAL 10/25/24 19:19 1 each ONCE ONE Administration Diphtheria/Tetanus/Acell Pertussis 0.5 ml 10/25/24 19:18 10/25/24 19:25 Tetanus/Diphth/Pertussis 0.5 Ml Syringe IM 10/25/24 19:19 0.5 ml .ONCE ONE Administration MDM - Wound/Laceration Imaging Data XR left ankle: Attestation: I have reviewed the pertinent imaging results. My impression: No ankle fracture seen on my preliminary review. Significant hardware in foot. Await radiology reading. Radiologist's impression: Patient: RUDY HERNANDEZ Facility:?[facility] Patient ID:?[id number] Site Patient ID:?[id number]. Site :?[id number] Study:?XRay-Extremity Left ANKLE 3 VIEWS-10/25/2024 7:32:01 PM Ordering Physician:Naina Anderson Final Report: INDICATION: Dropped board on ankle. COMPARISON: 03/10/2022 fluoroscopic images of the left foot TECHNIQUE: Three radiographic view(s) of the left ankle. FINDINGS: No evident acute displaced fracture. Normal alignment of the tibiotalar joint. The tibiotalar joint space is grossly preserved. Extensive postoperative changes in the hindfoot and midfoot including osteotomy of the calcaneal body spanned by plate and screw fixation hardware and placement of arthrodesis hardware at the hindfoot and midfoot. The aforementioned hardware is difficult to fully evaluate on the provided projections of the ankle. No substantial periprosthetic lucency. No evidence of hardware fracture. IMPRESSION: No acute osseous findings. Additional findings as detailed above. Dictated by Jose David Gonzalez MD @ 10/25/2024 8:04:43 PM (Electronic Signature) Discharge Plan Discharge Clinical Impression: Abrasion Patient Disposition: Home, Self-Care Condition: Stable Instructions: Abrasion (ED) Additional Instructions: For the abrasion on the front of the ankle, may shower as usual, pat the wound dry. Need to keep this wound clean and dry otherwise, especially when your out in public. Would use bandages and bacitracin changing this twice a day until the wound is healed. If the wound is not leaking any fluid or any mild ongoing bleeding, can leave it open to air at night. Certainly can use Tylenol and ibuprofen per bottle directions if needed for pain control. If you develop concerns for infection of the wound, please seek re-evaluation. Activity Level: Activity as Tolerated Prescriptions: No Action hydrocortisone 1 % cream 1 applic topical BID Qty: 28.4 0RF omeprazole 20 mg capsule,delayed release(DR/EC) 20 mg PO DAILY Follow Up/Referrals: Provider,Not a Local [Primary Care Provider, Family Practice] Stand Alone Forms: [facility] Info Instructions
--- NOTE | 2024-10-25 19:18 | CRLHL7_ITS ---
For Patients: As a result of the Century Cures Act, medical imaging exams and procedure reports are released immediately into your electronic medical record. You may view this report before your referring provider. If you have questions, please contact your health care provider. INDICATION: Dropped board on ankle. COMPARISON: 03/10/2022 fluoroscopic images of the left foot TECHNIQUE: Three radiographic view(s) of the left ankle. FINDINGS: No evident acute displaced fracture. Normal alignment of the tibiotalar joint. The tibiotalar joint space is grossly preserved. Extensive postoperative changes in the hindfoot and midfoot including osteotomy of the calcaneal body spanned by plate and screw fixation hardware and placement of arthrodesis hardware at the hindfoot and midfoot. The aforementioned hardware is difficult to fully evaluate on the provided projections of the ankle. No substantial periprosthetic lucency. No evidence of hardware fracture. IMPRESSION: No acute osseous findings. Additional findings as detailed above. Dictated by Jose David Gonzalez MD @ 10/25/2024 8:04:43 PM (Electronically Signed)
[2024-10-25] MEDS: BACITRACIN 0.9 GM PACKET 1 EACH TOPICAL (19:24)
[2024-10-25] MEDS: TETANUS/DIPHTH/PERTUSSIS 0.5 ML SYRINGE IM (19:25)
[2024-10-25 20:17] VITALS: BP 145/84; PULSE 82; RESP 18; TEMP 36.6; O2SAT 96
[2024-10-25 20:18] VITALS: BP 145/84; PULSE 82; RESP 18; TEMP 36.6
== END 2024-10-25 20:19 | disposition home or self-care (01) ==
PROVIDERS: Emergency Provider Family Medicine
DX: S90.512A Abrasion, left ankle, initial encounter (principal); Z23 Encounter for immunization; W20.8XXA Other cause of strike by thrown, projected or falling object, initial encounter
CPT/HCPCS: 73610; 90471; 90715; 99283; A9270